=== PATIENT | female | born 2000 | race Caucasian/White ===

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

== ENCOUNTER 2018-01-31 16:52 | Inpatient (IN) | payer MEDICAID ==
[2018-01-31] MEDS ORDERED: DINOPROSTONE 10 MG VAGINAL INSERT.SR PV PRN (18:33)
[2018-01-31] MEDS ORDERED: MISOPROSTOL 0.2 MG TABLET PR PRN (18:36)
[2018-01-31] MEDS ORDERED: OXYTOCIN/NORMAL SALINE 20 UNIT/1,000 ML RTUINJ IV PRN (18:36)
[2018-01-31] MEDS ORDERED: LIDOCAINE 1% INJ-PF (10 MG/ML) 30 ML SDV INJ PRN (18:36)
[2018-01-31 19:03] LABS: APPEARANCE,URINE CLOUDY; BILIRUBIN,URINE NEGATIVE (NEGATIVE); COLOR,URINE YELLOW; GLUCOSE, URINE NEGATIVE (NEGATIVE); KETONES,URINE NEGATIVE (NEGATIVE); LEUKOCYTE ESTERASE,URINE LARGE (NEGATIVE); NITRITE,URINE NEGATIVE (NEGATIVE); PROTEIN,URINE NEGATIVE (NEGATIVE); URINE SPECIFIC GRAVITY 1.012; UROBILINOGEN,URINE NEGATIVE mg/dL (<2.0)
[2018-01-31 19:09] LABS: ABSOLUTE EOSINOPHILS # (AUTO) 0.1 10^3/uL (0.0-0.6); ABSOLUTE LYMPHOCYTES (AUTO) 2.1 10^3/uL (0.5-4.7); ABSOLUTE MONOCYTES (AUTO) 0.7 10^3/uL (0.1-1.4); ABSOLUTE NEUT (AUTO) 5.4 10^3/uL (1.7-8.2); BASOPHILS % (AUTO) 0.5 % (0-2); EOSINOPHILS % (AUTO) 0.8 % (0-6); HEMOGLOBIN 11.1 g/dL (12.0-15.5); LYMPHOCYTES % (AUTO) 25.7 % (13-45); MEAN CORPUSCULAR HEMOGLOBIN 31.2 pg (27.0-33.4); MEAN CORPUSCULAR HGB CONC 34.8 g/dL (32.0-36.0); MEAN CORPUSCULAR VOLUME 90 fl (80-97); MONOCYTES % (AUTO) 8.8 % (3-13); PLATELET COUNT 197 10^3/uL (150-450); RED BLOOD COUNT 3.57 10^6/uL (3.72-5.28); RED CELL DISTRIBUTION WIDTH 13.7 % (11.5-14.0); SEGMENTED NEUTROPHILS % (AUTO) 64.2 % (42-78); TOTAL CELLS COUNTED % (AUTO) 100 %; WHITE BLOOD COUNT 8.4 10^3/uL (4.0-10.5)
[2018-01-31 19:19] LABS: URINE AMPHETAMINES SCREEN NEGATIVE; URINE BARBITURATES SCREEN NEGATIVE; URINE BENZODIAZEPINES SCREEN NEGATIVE; URINE COCAINE SCREEN NEGATIVE; URINE MARIJUANA (THC) SCREEN NEGATIVE; URINE METHADONE SCREEN NEGATIVE; URINE PHENCYCLIDINE SCREEN NEGATIVE
[2018-01-31] MEDS ORDERED: DINOPROSTONE 10 MG VAGINAL INSERT.SR ONE (19:43)
[2018-01-31] MEDS: RINGERS SOLUTION,LACTATED 1,000 ML IV PRN (20:26)
[2018-01-31] MEDS ORDERED: ZOLPIDEM TARTRATE 5 MG TABLET PO ONE (22:31)
[2018-01-31] MEDS ORDERED: ZOLPIDEM TARTRATE 5 MG TABLET ONE (22:33)
[2018-02-01] MEDS ORDERED: PROMETHAZINE HCL INJ 25 MG/1 ML VIAL IV ONE (04:38)
[2018-02-01] MEDS ORDERED: NALBUPHINE HCL INJ 10 MG/1 ML AMPULE INJ ONE (04:39)
[2018-02-01] MEDS ORDERED: PROMETHAZINE HCL INJ 25 MG/1 ML VIAL ONE (04:43)
[2018-02-01] MEDS ORDERED: NALBUPHINE HCL INJ 10 MG/1 ML AMPULE ONE (04:43)
[2018-02-01] MEDS: RINGERS SOLUTION,LACTATED 1,000 ML IV PRN (04:54)
--- NOTE | 2018-02-01 06:42 | Admission Physical ---
Datetime Report Generated by CPN: 02/01/2018 06:41 CURRENT ADMISSION Chief Complaint: Scheduled Induction of Labor Indication for Induction: IUGR Admit Impression : Term, Intrauterine Admit Plan: Initiate Labor Induction Protocol ALLERGIES Medication Allergies: No Medication Allergies: No Known Allergies (09/25/2017) Latex: No Latex Allergies Food Allergies: none Environmental Allergies: none OBSTETRICAL HISTORY EDC: 02/08/2018 00:00 : 1 Para: 0 Term: 0 : 0 SAB: 0 IAB: 0 Ectopic: 0 Livin Cesareans: 0 VBACs: 0 Multiple Births: 0 Gestational Diabetes: No Rh Sensitization: No Incompetent Cervix: No CARLOS: No Infertility: No ART Treatment: No Uterine Anomaly: No IUGR: Yes Hx Previous C/S: No Macrosomia: No Hx Loss/Stillborn: No PIH: No Hx : No Placenta Previa/Abruption: No Depression/PP Depression: No PTL/PROM: No Post Hemorrhage: No Current Procedures: Ultrasound Obstetrical History Comments: 2017 current IUGR 3rd percentile IOL SEE RECORDS Alcohol: No Marijuana : No Cocaine: No Other Illicit Drugs: No Cigarettes: Never Smoker. 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 Surgery: No Heart Disease: No Hosp/Surgery: No Autoimmune Disorder: No Anesthetic Complications: No Kidney Disease: No Abnormal Pap Smear: No Neuro/Epilepsy: No Psychiatric Disorders: No Other Medical Diseases: Yes Hepatitis/Liver Disease: No Significant Family History: No Varicosities/Phlebitis: No Trauma/Violence : No Thyroid Dysfunction: No Medical History Comments: colonscopy and endoscopy-2017 for stomach related issues- diagnosed with IBS INFECTIOUS HISTORY Gonorrhea: No Genital Herpes: No Chlamydia: No Tuberculosis: No Syphilis: No Hepatitis: No HIV/AIDS Exposure: No Rash or Viral Illness: No HPV: No PHYSICAL EXAM General: Normal HEENT: Normal Neurologic: Normal Thyroid: Normal Heart: Normal Lungs: Normal Breast: Deferred Back: Normal Abdomen: Normal Genitourinary Exam: Normal Extremities: Normal DTRs: Normal Pelvic Type: Adequate FETUS A EGA: 39.0 PLANS FOR LABOR AND DELIVERY Labor and Delivery: None Other Pain Management Plans: unsure Feeding Preference: Breast Benefit of Breast Feed Discussed: Yes Circumcision: Yes INFORMED CONSENT Signature: with User ID: [email or web address]
--- NOTE | 2018-02-01 08:41 | L&D Progress Notes ---
PROGRESS NOTES Datetime Report Generated by CPN: 02/01/2018 08:41 PROGRESS NOTE Vital Signs : Reviewed; Within Normal Limits Comment: Resting in bed, mother at BS, no c/o, waiting for bkf, reviewed POC SIGNATURE SIGNATURE: ,[id number] SIGNATURE: ,[id number] Assignment: Anupama Bermudez MD Signature: with User ID: [email or web address] : with User ID: [email or web address]
[2018-02-01] MEDS ORDERED: OXYTOCIN/NORMAL SALINE 20 UNIT/1,000 ML RTUINJ ONE (09:33)
--- NOTE | 2018-02-01 11:08 | L&D Progress Notes ---
PROGRESS NOTES Datetime Report Generated by CPN: 02/01/2018 11:07 PROGRESS NOTE Comment: pt crying in pain due to UC's, VE = 2-/vtx/-1 Pitocin off, Plan epidural and restart Pitocin FETUS C SIGNATURE: [id number];[id number] Assignment: Anupama Bermudez MD Signature: with User ID: [email or web address] : with User ID: [email or web address]
[2018-02-01] MEDS ORDERED: EPHEDRINE SULFATE INJ 50 MG/1 ML AMPULE ONE (11:15)
[2018-02-01] MEDS ORDERED: BUPIVACAINE HCL 0.25 % INJ/PF (2.5 MG/1 ML) 30 ML VIAL ONE (11:16)
[2018-02-01] MEDS ORDERED: FENTANYL/BUPIVACAINE/NS/PF 300 MCG/150 ML RTUINJ EPI ONE (11:16)
--- NOTE | 2018-02-01 12:16 | L&D Progress Notes ---
PROGRESS NOTES Datetime Report Generated by CPN: 02/01/2018 12:16 PROGRESS NOTE Impression: Normal Progression of Labor; Reassuring Heart Rate Procedures: Artificial ROM; Sterile Vag Exam Plan: Continue Present Management; Induction Informed Consent Obtained: Vaginal Delivery Comment: Comfortable with epidural, VE 5-6/100/vtx/0, uc's q 2-5 x 60 sec, arom, mod mec, pt aware of statuds FETUS A Monitoring: External US Decelerations: None FETUS C SIGNATURE: [id number];[id number] Assignment: Anupama Bermudez MD Signature: with User ID: Troy : with User ID: [email or web address]
[2018-02-01] MEDS ORDERED: MISOPROSTOL 0.2 MG TABLET ONE (13:12)
[2018-02-01] MEDS ORDERED: LIDOCAINE 1% INJ-PF (10 MG/ML) 30 ML SDV ONE (13:13)
[2018-02-01] MEDS ORDERED: DIBUCAINE 1% OINTMENT 28 GM TP PRN (14:04)
[2018-02-01] MEDS ORDERED: MEASLES,MUMPS&RUBELLA VACC/PF 0.5 ML VIAL SUBCUT PRN (14:04)
[2018-02-01] MEDS ORDERED: OXYTOCIN/NORMAL SALINE 20 UNIT/1,000 ML RTUINJ IV PRN (14:04)
[2018-02-01] MEDS ORDERED: PROMETHAZINE HCL INJ 25 MG/1 ML VIAL IV PRN (14:04)
[2018-02-01] MEDS ORDERED: BENZOCAINE/MENTHOL AEROSOL SPRAY 56 ML TOP PRN (14:04)
[2018-02-01] MEDS ORDERED: ACETAMINOPHEN 650 MG SUPP.RECT PR PRN (14:04)
[2018-02-01] MEDS ORDERED: PSEUDOEPHEDRINE HCL 30 MG TABLET PO PRN (14:04)
[2018-02-01] MEDS ORDERED: DIPH/PERTUSS(ACELL)/TETANUS VAC/PF 0.5 ML SYR (>=10YO) IM PRN (14:04)
[2018-02-01] MEDS ORDERED: ACETAMINOPHEN WITH CODEINE #3 TABLET PO PRN (14:04)
[2018-02-01] MEDS ORDERED: DIPHENHYDRAMINE HCL 25 MG CAPSULE PO PRN (14:04)
[2018-02-01] MEDS ORDERED: MAGNESIUM HYDROXIDE SUSP 30 ML UDCUP PO PRN (14:04)
[2018-02-01] MEDS ORDERED: GLYCERIN/WITCH HAZEL LEAF 1 EACH MED..PAD TP PRN (14:04)
[2018-02-01] MEDS ORDERED: PROMETHAZINE HCL 25 MG TABLET PO PRN (14:04)
[2018-02-01] MEDS ORDERED: NA PHOS,M-B/NA PHOS,DI-BA (ADULT) 133 ML ENEMA PR PRN (14:04)
[2018-02-01] MEDS ORDERED: PROMETHAZINE HCL 25 MG SUPP.RECT PR PRN (14:04)
[2018-02-01] MEDS: ACETAMINOPHEN WITH CODEINE #3 TABLET PO PRN (16:57)
--- NOTE | 2018-02-01 18:50 | Delivery Summary ---
Del Sum A-C Datetime Report Generated by CPN: 02/01/2018 18:49 DELIVERY PERSONNEL DELIVERY PERSONNEL: [id number] Delivery Doctor:: Barbra Martell CNM Labor and Delivery Nurse:: Sabi Song RNcover inspector Nurse:: Bri Spivey RN Nursery Nurse:: Viridiana Darnell RN Cardiology Technician/CARROT HARVESTER: Nadia Johnson CNA II MATERNAL INFORMATION Delivery Anesthesia: Epidural Medications After Delivery: Pitocin Bolus-Please Comment; Pitocin Drip 20 Units/1000ml NSS Maternal Complications: None Provider Comments: NVD viable male from OA to WOOD over intact perineum, left and right 1st degree periurethral lac, NC x 1 easily reduced, placed on mothers abdomen, cord clamped and cut by g-mother after 2 minutes, Spont delivery of grossly normal small intact placenta, 3 VC, lacerations repaired with 801-H, 2-0 chromic without difficulty baby and mom remain in recovery in stable condition [facility]FF[facility] LABOR SUMMARY EDC: 02/08/2018 00:00 No. Babies in Womb: 1 Attempted: No Labor Anesthesia: Epidural LABOR INFORMATION Reason for Induction: Intrauterine Growth Retardation Onset of Labor: 02/01/2018 12:11 Complete Dilatation: 02/01/2018 13:28 Cervical Ripening Agents: Cervidil Oxytocin: Induction Group B Beta Strep: Negative Antibiotics # of Doses: 0 Antibiotics Time of Last Dose: n/a Name of Antibiotic Given: n/a Steroids Given: None Reason Steroids Not Administered: Not Applicable MEMBRANES Membranes Rupture Method: Artificial Rupture of Membranes: 02/01/2018 12:11 Length of Rupture (hr): 1.53 Amniotic Fluid Color: Moderate Meconium Amniotic Fluid Amount: Small Amniotic Fluid Odor: Normal STAGES OF LABOR Stage 1 hr: 1 Stage 1 min: 17 Stage 2 hr: 0 Stage 2 min: 15 Stage 3 hr: 0 Stage 3 min: 4 Total Time in Labor hr: 1 Total Time in Labor min: 36 VAGINAL DELIVERY Episiotomy: None Laceration #1: Periurethral Laceration Extension #1: First Degree Laceration #2: Periurethral Laceration Extension #2: First Degree Other Laceration: BILATERAL LABIAL Laceration Repair: Yes Sponge Count Correct: N/A Sharps Count Correct: N/A BABY A INFORMATION Infant Delivery Date/Time: 02/01/2018 13:43 Method of Delivery: Vaginal Born in Route : No : N/A Forceps: N/A Vacuum Extraction: N/A Shoulder Dystocia : No PRESENTATION/POSITION BABY A Presentation: Cephalic Cephalic Presentation: Vertex Vertex Position: Right Occipital Anterior Breech Presentation: N/A PLACENTA INFORMATION BABY A Placenta Delivery Time : 02/01/2018 13:47 Placenta Method of Delivery: Spontaneous Placenta Status: Delivered SCORES BABY A Heart Rate 1 min: >100 bpm Resp Effort 1 min: Good Cry Reflex Irritability 1 min: Cough or Sneeze or Pulls Away Muscle Tone 1 min: Active Motion Color 1 min: Blue/Pale Resuscitation Effort 1 min: Tactile Stimulation SCORE 1 MIN: 8 Heart Rate 5 min: >100 bpm Resp Effort 5 min: Good Cry Reflex Irritability 5 min: Cough or Sneeze or Pulls Away Muscle Tone 5 min: Active Motion Color 5 min: Body [place], Extremities Blue Resuscitation Effort 5 min: Tactile Stimulation SCORE 5 MIN: 9 INFANT INFORMATION BABY A Gestational Age at Delivery: 39.0 Gestational Status: Full Term- 39- 40.6 Weeks Infant Outcome : Liveborn Infant Condition : Stable Sex: Male IDENTIFICATION BABY A ID Band Number: [id number] Mother's Name Verified: Yes Infant RN Verifying Infant: Jeremy Song, RN/ LHenny Endytavares, RN WEIGHT/LENGTH BABY A Infant Birthweight (gm): 2430 Infant Weight (lb): 5 Infant Weight (oz): 6 Length (in): 18.75 Infant Length (cm): 47.63 CORD INFORMATION BABY A No. Cord Vessels: 3 Nuchal Cord : Around Neck x1, Loose Cord Blood Taken: Yes-For Storage (Mom's Blood type +) Suction: Mouth; Nose ASSESSMENT BABY A Infant Complications: Meconium Complications- Other: SEVERE IUGR Physical Findings at Delivery: Within Normal Limits Infant Respirations: Appears Normal Skin to Skin: Yes Physical Instructor/ALS Called : No Care By: Ally DARNELL RN Transferred To: Remains with Mother BABY B INFORMATION : N/A
[2018-02-01] MEDS: FERROUS SULFATE 325 MG TABLET PO SCH (18:51)
[2018-02-01] MEDS: DOCUSATE SODIUM 100 MG CAPSULE PO SCH (18:51)
[2018-02-01] MEDS: FAMOTIDINE 20 MG TABLET PO SCH (21:43)
[2018-02-01] MEDS: IBUPROFEN 800 MG TABLET PO SCH (21:44)
[2018-02-02] MEDS: ACETAMINOPHEN WITH CODEINE #3 TABLET PO PRN ×2 (01:31→19:17)
[2018-02-02] MEDS: IBUPROFEN 800 MG TABLET PO SCH ×3 (05:11→21:40)
[2018-02-02 07:34] LABS: HEMATOCRIT 29.9 % (36.0-47.0); HEMOGLOBIN 10.3 g/dL (12.0-15.5); MEAN CORPUSCULAR HEMOGLOBIN 31.2 pg (27.0-33.4); MEAN CORPUSCULAR HGB CONC 34.4 g/dL (32.0-36.0); MEAN CORPUSCULAR VOLUME 91 fl (80-97); PLATELET COUNT 166 10^3/uL (150-450); RED BLOOD COUNT 3.29 10^6/uL (3.72-5.28); RED CELL DISTRIBUTION WIDTH 13.8 % (11.5-14.0); WHITE BLOOD COUNT 11.2 10^3/uL (4.0-10.5)
[2018-02-02] MEDS: FERROUS SULFATE 325 MG TABLET PO SCH ×2 (09:27→17:31)
[2018-02-02] MEDS: DOCUSATE SODIUM 100 MG CAPSULE PO SCH ×2 (09:27→17:31)
[2018-02-02] MEDS: FAMOTIDINE 20 MG TABLET PO SCH ×2 (09:28→17:31)
--- NOTE | 2018-02-02 09:28 | PDOC PROGRESS REPORT ---
Subjective-OB Progress Note for:: 02/02/18 Physical Exam (OB) Vital Signs: Temp Pulse Resp BP Pulse Ox 98.0 F 89 16 130/85 H 98 02/02/18 07:55 02/02/18 07:55 02/02/18 07:55 02/02/18 07:55 02/02/18 07:55 Intake & Output 02/01/18 02/02/18 02/03/18 06:59 06:59 06:59 Intake Total 500 Balance 500 Weight 69.9 kg - PIH/Pre-Eclampsia Clonus: Negative Headache: Absent Epigastric Pain: No Visual Changes: No - Lochia Lochia Amount: Small 10-25 ml Lochia Color: Rubra/Red - Abdomen Description: Soft, Round Hernia Present: No Bowel Sounds: Normoactive Flatus Presence: Present Stool: Yes - with delivery Fundal Description: Firm, Midline Fundal Height: u/u - u/2 Objective-Diagnostic Laboratory: 02/02/18 07:14 02/02/18 07:14 WBC 11.2 H RBC 3.29 L Hgb 10.3 L Hct 29.9 L MCV 91 MCH 31.2 MCHC 34.4 RDW 13.8 Plt Count 166
[2018-02-02] MEDS ORDERED: PRENATAL VITAMIN W DHA CAPSULE PO SCH (10:00)
[2018-02-02] MEDS ORDERED: SENNOSIDES/DOCUSATE 8.6-50 MG 1 EACH TABLET PO SCH (10:00)
[2018-02-03] MEDS: IBUPROFEN 800 MG TABLET PO SCH ×2 (05:52→13:20)
[2018-02-03] MEDS: FAMOTIDINE 20 MG TABLET PO SCH (09:31)
[2018-02-03] MEDS: DOCUSATE SODIUM 100 MG CAPSULE PO SCH (09:31)
[2018-02-03] MEDS: FERROUS SULFATE 325 MG TABLET PO SCH (09:31)
--- NOTE | 2018-02-03 10:20 | PDOC DISCHARGE SUMMARY ---
Final Diagnosis Discharge Date: 02/03/18 - Final Diagnosis (1) Delivery normal Is this a current diagnosis for this admission?: Yes (2) Encounter for induction of labor Is this a current diagnosis for this admission?: Yes (3) IUGR (intrauterine growth restriction) Is this a current diagnosis for this admission?: Yes (4) Meconium in amniotic fluid Is this a current diagnosis for this admission?: Yes (5) Obstetrical laceration, first degree Is this a current diagnosis for this admission?: Yes Discharge Data - Discharge Medication Prescriptions: Ibuprofen [Motrin 800 mg Tablet] 800 mg PO Q8 #60 tablet Home Medications: Vit/Iron Fum/Folic AC [ Tablet] 1 tab PO DAILY 09/25/17 Ibuprofen [Motrin 800 mg Tablet] 800 mg PO Q8 #60 tablet 02/03/18 Reason(s) for Admission: Induction of Labor Procedures: NST Intrapartum Procedure(s): Spontaneous Vaginal Delivery - Diagnosis Test Laboratory: Temp Pulse Resp BP Pulse Ox 98.4 F 93 H 17 142/84 H 98 02/03/18 08:30 02/03/18 08:30 02/03/18 08:30 02/03/18 08:30 02/03/18 08:30 01/31/18 01/31/18 02/02/18 18:23 18:59 07:14 RBC 3.57 L 3.29 L Hgb 11.1 L 10.3 L Hct 32.0 L 29.9 L Urine Opiates Screen NEGATIVE - Discharge information/Instructions Discharge Activity: Balance Activity w/Rest, Pelvic Rest Discharge Diet: Regular Disposition: HOME, SELF-CARE Follow up with: [facility] in: 4, Weeks
[2018-02-03 10:59] VITALS: BP 131/87
== END 2018-02-03 14:00 | disposition home or self-care (01) | DRG 775 ==
LOC: LR 18:19 → UNDODISIN 02-01 11:40 → 2S 02-01 16:32
PROVIDERS: ADMIT Obstetrics & Gynecology Gynecology; ATTEND Obstetrics & Gynecology Gynecology
PROC: 4A1HXCZ Monitoring of Products of Conception, Cardiac Rate, External Approach (ICD-10-PCS; 2018-01-31)
PROC: 10E0XZZ Delivery of Products of Conception, External Approach (ICD-10-PCS; principal; 2018-02-01)
PROC: 0HQ9XZZ Repair Perineum Skin, External Approach (ICD-10-PCS; 2018-02-01)
PROC: 0UQMXZZ Repair Vulva, External Approach (ICD-10-PCS; 2018-02-01)
PROC: 3E033VJ Introduction of Other Hormone into Peripheral Vein, Percutaneous Approach (ICD-10-PCS; 2018-02-01)
PROC: 3E0P7VZ Introduction of Hormone into Female Reproductive, Via Natural or Artificial Opening (ICD-10-PCS; 2018-02-01)
PROC: 10907ZC Drainage of Amniotic Fluid, Therapeutic from Products of Conception, Via Natural or Artificial Opening (ICD-10-PCS; 2018-02-01)
DX: O36.5930 Maternal care for other known or suspected poor fetal growth, third trimester, not applicable or unspecified (principal); O71.82 Other specified trauma to perineum and vulva; O77.0 Labor and delivery complicated by meconium in amniotic fluid; O69.81X0 Labor and delivery complicated by cord around neck, without compression, not applicable or unspecified; Z3A.39 39 weeks gestation of pregnancy; Z37.0 Single live birth
CPT/HCPCS: 36415; 80307; 81005; 85025; 85027; 86592; 86850; 86900; 86901; J2300; J2550; J2590; J3010; J3490

== ENCOUNTER 2018-06-07 20:16 | Emergency (ER) | payer SELFPAY ==
[2018-06-07 23:03] LABS: APPEARANCE,URINE CLOUDY; BILIRUBIN,URINE NEGATIVE (NEGATIVE); COLOR,URINE YELLOW; GLUCOSE, URINE NEGATIVE (NEGATIVE); KETONES,URINE NEGATIVE (NEGATIVE); LEUKOCYTE ESTERASE,URINE MODERATE (NEGATIVE); NITRITE,URINE NEGATIVE (NEGATIVE); PROTEIN,URINE NEGATIVE (NEGATIVE); URINE SPECIFIC GRAVITY 1.025; UROBILINOGEN,URINE NEGATIVE mg/dL (<2.0)
[2018-06-07] MEDS ORDERED: CEPHALEXIN 500 MG CAPSULE PO ONE (23:34)
--- NOTE | 2018-06-07 23:39 | ER Document Report ---
HPI - HPI Time Seen by Provider: 06/07/18 22:01 Pain Level: 4 Notes: Patient is an otherwise healthy 17-year-old female who presents with chief complaint of low back pain and lower abdominal pain. Patient reports that although she does not have dysuria she feels like she may have a urinary tract infection. Diarrhea or fever. - REPRODUCTIVE Reproductive: REPORTS: : Past Medical History - General Information source: Patient - Social History Smoking Status: Never Smoker Chew tobacco use (# tins/day): No Frequency of alcohol use: None Drug Abuse: None Family History: Reviewed & Not Pertinent Patient has suicidal ideation: No Patient has homicidal ideation: No - Medical History Medical History: Negative - Past Medical History Cardiac Medical History: Denies: Hx Coronary Artery Disease, Hx Heart Attack, Hx Hypertension Pulmonary Medical History: Denies: Hx Asthma, Hx Bronchitis, Hx COPD, Hx Pneumonia Neurological Medical History: Denies: Hx Cerebrovascular Accident, Hx Seizures Renal/ Medical History: Denies: Hx Peritoneal Dialysis Musculoskeletal Medical History: Denies Hx Arthritis Surgical Hx: Negative Past Surgical History: Denies: Hx Hysterectomy - Immunizations Immunizations up to date: Yes Hx Diphtheria, Pertussis, Tetanus Vaccination: Yes Vertical Provider Document - CONSTITUTIONAL Notes: PHYSICAL EXAMINATION: GENERAL: Well-appearing, well-nourished and in no acute distress. HEAD: Atraumatic, normocephalic. EYES: Pupils equal round extraocular movements intact, conjunctiva are normal. ENT: Nares patent NECK: Normal range of motion LUNGS: No respiratory distress Musculoskeletal: Normal range of motion NEUROLOGICAL: Normal speech, normal gait. PSYCH: Normal mood, normal affect. SKIN: Warm, Dry, normal turgor, no rashes or lesions noted. - INFECTION CONTROL TRAVEL OUTSIDE OF THE [place] IN LAST 30 DAYS: No Course - Re-evaluation Re-evalutation: Urinalysis with moderate leukocyte esterase. Patient will be started on Keflex , urine sent for culture. Patient discharged home in stable condition. - Laboratory Laboratory results interpreted by me: 06/07/18 22:03 Ur Leukocyte Esterase MODERATE H Discharge - Discharge Clinical Impression: Cystitis Condition: Stable Disposition: HOME, SELF-CARE Additional Instructions: URINARY TRACT INFECTION: Your evaluation indicates that you have a urinary tract infection. This is due to germs growing in the bladder. This is a common problem. This infection usually responds quickly to antibiotics. Your antibiotic should be taken exactly as prescribed. Drink plenty of fluids -- three to four quarts a day. Occasionally, a bladder anesthetic will be prescribed to help stop the feeling of urgency until the antibiotic has a chance to clear the infection. This may cause your urine to be dark orange. Certain urine infections require a culture. If the doctor obtained a culture, the results will be back in two days. You should call to see if a change in treatment is needed. A repeat urinalysis after you finish treatment is often recommended. The physician will let you know if further testing is required. Call the doctor if you develop fever, chills, flank pain, inability to urinate, or blood in the urine. ANTIBIOTIC THERAPY: You have been given an antibiotic prescription. It's important that you take all the medication, unless instructed otherwise by your physician. Failure to complete the entire course can result in relapse of your condition. Common side effects of antibiotics include nausea, intestinal cramping, or diarrhea. Women may develop vaginal yeast infections, and babies can get yeast (thrush) in the mouth following the use of antibiotics. Contact your physician if you develop significant side effects from this medication. Allergy to this antibiotic can result in hives, wheezing, faintness, or itching. If symptoms of allergy occur, stop the medication and call the doctor. CEPHALEXIN: The antibiotic you've been prescribed is a member of the cephalosporin class. This type of antibiotic covers a wide variety of infections, including those of the skin, lungs, and urinary tract. It's useful for staph infections. This antibiotic is slightly similar to the penicillin family. In rare cases , a person who is allergic to penicillin will also be allergic to this medication. If you have had a severe allergic reaction to penicillin, and have not taken this antibiotic since that time, notify your doctor. Antibiotics which cover many germs ("broad spectrum" antibiotics) are more likely to cause diarrhea or "yeast" infections. Women prone to vaginal yeast problems may suffer an attack after taking this antibiotic. In infants, oral thrush (white spots "stuck" on the cheek) or yeast diaper rash may result. See your doctor if these problems occur. Call at once if you develop itching, hives , shortness of breath, or lightheadedness. FOLLOW-UP CARE: If you have been referred to a physician for follow-up care, call the physician s office for an appointment as you were instructed or within the next two days. If you experience worsening or a significant change in your symptoms, notify the physician immediately or return to the Emergency Department at any time for re-evaluation. Your urine appears mildly infected, this may be causing the symptoms that you are experiencing. Please take ibuprofen 600 mg every 6 hours for your pain. Take the antibiotics as prescribed. We will send the urine down for culture, if anything abnormal comes of it we will call you. Follow-up with your primary care provider in the next 5-7 days for follow-up. Prescriptions: Cephalexin [Cephalexin 500 MG Tablet] 1 tab PO QID #20 tablet Forms: Return to Work Referrals: TAMMY SOLOMON MD [Primary Care Provider] - Follow up as needed
[2018-06-07 23:43] VITALS: BP 116/69
== END 2018-06-08 00:07 | disposition home or self-care (01) ==
LOC: ER 20:16
DX: N30.90 Cystitis, unspecified without hematuria (principal); M54.5 Low back pain; R10.30 Lower abdominal pain, unspecified
CPT/HCPCS: 81001; 87086; 99283

== ENCOUNTER 2020-01-31 10:44 | Emergency (ER) | payer SELFPAY ==
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
[2020-01-31] MEDS ORDERED: CEFTRIAXONE INJ 250 MG VIAL IM ONE (14:07)
[2020-01-31] MEDS ORDERED: METRONIDAZOLE 500 MG TABLET PO ONE (14:07)
[2020-01-31] MEDS ORDERED: LIDOCAINE 1% INJ-PF (10 MG/ML) 30 ML SDV INJ ONE (14:07)
[2020-01-31] MEDS ORDERED: PROMETHAZINE HCL 25 MG TABLET PO ONE (14:07)
[2020-01-31] MEDS ORDERED: LEVONORGESTREL 1.5 MG TABLET (1 TAB/ER-USE) PO ONE (14:07)
[2020-01-31] MEDS ORDERED: AZITHROMYCIN 250 MG TABLET PO ONE (14:07)
[2020-01-31 15:02] LABS: ABSOLUTE EOSINOPHILS # (AUTO) 0.1 10^3/uL (0.0-0.6); ABSOLUTE LYMPHOCYTES (AUTO) 2.2 10^3/uL (0.5-4.7); ABSOLUTE MONOCYTES (AUTO) 0.6 10^3/uL (0.1-1.4); ABSOLUTE NEUT (AUTO) 7.4 10^3/uL (1.7-8.2); BASOPHILS % (AUTO) 0.4 % (0-2); EOSINOPHILS % (AUTO) 0.6 % (0-6); HEMATOCRIT 39.5 % (36.0-47.0); HEMOGLOBIN 13.7 g/dL (12.0-15.5); LYMPHOCYTES % (AUTO) 21.8 % (13-45); MEAN CORPUSCULAR HEMOGLOBIN 30.8 pg (27.0-33.4); MEAN CORPUSCULAR HGB CONC 34.7 g/dL (32.0-36.0); MEAN CORPUSCULAR VOLUME 89 fl (80-97); MONOCYTES % (AUTO) 5.5 % (3-13); PLATELET COUNT 286 10^3/uL (150-450); RED BLOOD COUNT 4.45 10^6/uL (3.72-5.28); RED CELL DISTRIBUTION WIDTH 13.5 % (11.5-14.0); SEGMENTED NEUTROPHILS % (AUTO) 71.7 % (42-78); TOTAL CELLS COUNTED % (AUTO) 100 %; WHITE BLOOD COUNT 10.3 10^3/uL (4.0-10.5)
[2020-01-31 15:06] LABS: T.VAGINALIS (WET MOUNT) NO TRICHOMONAS SEEN; WBCS (WET MOUNT) FEW WBCS SEEN; YEAST (WET MOUNT) NO YEAST SEEN
[2020-01-31 15:23] LABS: ALBUMIN 4.6 g/dL (3.5-5.0); ALKALINE PHOSPHATASE 38 U/L (38-126); ANION GAP 8 (5-19); ASPARTATE AMINO TRANSFERASE 26 U/L (14-36); BILIRUBIN,TOTAL 0.5 mg/dL (0.2-1.3); BLOOD UREA NITROGEN 13 mg/dL (7-20); CALCIUM 9.8 mg/dL (8.4-10.2); CARBON DIOXIDE 29 mmol/L (22-30); CHLORIDE 101 mmol/L (98-107); GLUCOSE 121 mg/dL (75-110); TOTAL PROTEIN 7.7 g/dL (6.3-8.2)
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
[2020-01-31 15:48] LABS: APPEARANCE,URINE SLIGHTLY-CLOUDY; BILIRUBIN,URINE NEGATIVE (NEGATIVE); COLOR,URINE YELLOW; GLUCOSE, URINE NEGATIVE (NEGATIVE); KETONES,URINE NEGATIVE (NEGATIVE); LEUKOCYTE ESTERASE,URINE TRACE (NEGATIVE); NITRITE,URINE NEGATIVE (NEGATIVE); PROTEIN,URINE NEGATIVE (NEGATIVE); URINE SPECIFIC GRAVITY 1.023; UROBILINOGEN,URINE NEGATIVE mg/dL (<2.0)
[2020-01-31 16:35] LABS: CHLAM PCR NOT DETECTED (NOT DETECT)
[2020-01-31 17:00] VITALS: BP 121/67
[2020-02-02 05:38] LABS: HEPATITS B SURFACE ANTIGEN Negative (Negative)
[2020-02-02 07:26] LABS: HEPATITIS C VIRUS ANTIBODY <0.1 s/co ratio (0.0-0.9)
== END 2020-01-31 15:56 | disposition home or self-care (01) ==
LOC: ER 10:44
DX: T76.21XA Adult sexual abuse, suspected, initial encounter (principal); S31.41XA Laceration without foreign body of vagina and vulva, initial encounter; X58.XXXA Exposure to other specified factors, initial encounter
CPT/HCPCS: 99285; 96372; 36415; 87210; 85025; 81025; 86592; 80053; 81001; 86701; 87491; 87591; 80074; A9270; J3490; J0696